=== PATIENT | male | born 1960 | race Caucasian/White ===

== ENCOUNTER 2017-10-26 19:10 | Inpatient (IN) | payer OTHER ==
[~2017-10-26] VITALS: Ht 175.3 cm; Wt 101.5 kg
[~2017-10-26 19:10] MED LIST: AMLO1CAP6 PO
[2017-10-26] MEDS ORDERED: MORPHINE SULFATE 4 MG/ML, 1ML IVPush PRN ×2 (20:00→22:00)
[2017-10-26] MEDS ORDERED: SODIUM CHLORIDE 0.9% 1,000ML IVBOLUS ONE (20:00)
[2017-10-26] MEDS ORDERED: ONDANSETRON ODT 4 MG PO ONE (20:00)
[2017-10-26] MEDS ORDERED: SODIUM CHLORIDE FLUSH 10ML SYR IVF ONE (20:00)
[2017-10-26] MEDS ORDERED: ONDANSETRON 2MG/ML, 2ML ONE (20:03)
[2017-10-26] MEDS ORDERED: MORPHINE SULFATE 4 MG/ML, 1ML ONE (20:04)
[2017-10-26 20:26] LABS: BASOPHILS # (AUTO) 0.02 x10^3/uL (0-0.1); BASOPHILS % (AUTO) 0 % (0-1); EOSINOPHILS # (AUTO) 0.03 x10^3/uL (0-0.4); EOSINOPHILS % (AUTO) 1 % (1-7); LYMPHOCYTES # (AUTO) 1.51 x10^3/uL (1-3.4); LYMPHOCYTES % (AUTO) 21 % (22-44); MD NO; MEAN CORPUSCULAR HEMOGLOBIN 31.9 pg (27.5-34.5); MEAN CORPUSCULAR HGB CONC 34.1 g/dL (33.2-36.2); MEAN CORPUSCULAR VOLUME 93.6 fL (81-97); MEAN PLATELET VOLUME 8.3 fL (7.4-10.4); MONOCYTES # (AUTO) 0.43 x10^3/uL (0.2-0.8); MONOCYTES % (AUTO) 6 % (2-9); NEUTROPHILS # (AUTO) 5.08 x10^3/uL (1.8-6.8); NEUTROPHILS % (AUTO) 72 % (42-75); PLATELET COUNT 196 x10^3/uL (130-400); RED BLOOD COUNT 5.76 x10^6/uL (4.38-5.82); RED CELL DISTRIBUTION WIDTH 15.3 % (9.4-14.8)
[2017-10-26 20:38] LABS: ALANINE AMINOTRANSFERASE 141 U/L (12-78); ALBUMIN 3.6 g/dL (3.4-5.0); ANION GAP 8 mmol/L (5-15); CHLORIDE 101 mmol/L (98-107); CREATININE 1.12 mg/dL (0.7-1.3)
[2017-10-26 20:40] LABS: ALKALINE PHOSPHATASE 92 U/L (45-117); BILIRUBIN,TOTAL 1.5 mg/dL (0.2-1.0); TOTAL PROTEIN 7.7 g/dL (6.4-8.2)
[2017-10-26] MEDS ORDERED: LORazepam 2 MG/ML, 1ML IVPush ONE (21:36)
[2017-10-26] MEDS ORDERED: NS + 20MEQ KCL 1,000 ML IV SCH (21:59)
[2017-10-26] MEDS ORDERED: ONDANSETRON 2MG/ML, 2ML IVPush ONE (22:00)
[2017-10-26] MEDS ORDERED: ENALAPRILAT 1.25 MG/ML, 2ML IVPush PRN (22:00)
[2017-10-26 22:41] VITALS: BP 162/101
[2017-10-26] MEDS ORDERED: NICOTINE GUM 2 MG BC PRN (23:30)
[2017-10-26 23:36] VITALS: BP 162/98
[2017-10-26] MEDS: KETOROLAC 30 MG/1 ML IVPush PRN (23:38)
[2017-10-26] MEDS: ENOXAPARIN 40 MG/0.4 ML SQ SCH (23:47)
[2017-10-26] MEDS ORDERED: LOSA100T6 PO (23:54)
[2017-10-26] MEDS ORDERED: OMEP20CA14 PO (23:54)
[2017-10-27 00:35] VITALS: BP 159/80
[2017-10-27] MEDS ORDERED: MORPHINE SULFATE 4 MG/ML, 1ML IVPush PRN (02:00)
[2017-10-27] MEDS: MORPHINE SULFATE 4 MG/ML, 1ML IVPush ONE ×2 (04:16→04:30)
[2017-10-27 05:21] LABS: ALANINE AMINOTRANSFERASE 139 U/L (12-78); ANION GAP 7 mmol/L (5-15); CALCIUM 7.7 mg/dL (8.5-10.1); CHLORIDE 105 mmol/L (98-107); CREATININE 0.99 mg/dL (0.7-1.3)
[2017-10-27 05:25] LABS: ALBUMIN 3.3 g/dL (3.4-5.0); ALKALINE PHOSPHATASE 87 U/L (45-117); BILIRUBIN,TOTAL 1.6 mg/dL (0.2-1.0); CHOL/HDL RATIO 4.1; CHOLESTEROL, TOTAL 95 mg/dL (140-239); HDL CHOL % 24 % (26-37); HDL CHOLESTEROL (DIRECT) 23 mg/dL (40-60); TOTAL PROTEIN 7.1 g/dL (6.4-8.2); TRIGLYCERIDES 547 mg/dL (50-200)
[2017-10-27] MEDS: KETOROLAC 30 MG/1 ML IVPush PRN ×4 (05:42→23:28)
[2017-10-27] MEDS: SODIUM CHLORIDE 0.9% 1,000 ML IV SCH ×3 (05:56→20:00)
[2017-10-27 07:40] VITALS: BP 155/88
[2017-10-27] MEDS: MORPHINE SULFATE 4 MG/ML, 1ML IVPush PRN ×4 (07:52→20:26)
[2017-10-27] MEDS: AMLODIPINE 5 MG TABLET PO SCH ×2 (09:00→20:31)
[2017-10-27] MEDS: BENAZEPRIL 20 MG TABLET PO SCH ×2 (09:00→20:31)
[2017-10-27] MEDS: ONDANSETRON 2MG/ML, 2ML IVPush PRN ×2 (11:34→17:29)
[2017-10-27] MEDS ORDERED: PROMETHAZINE 25 MG/ML, 1ML IM PRN (15:00)
[2017-10-27 15:07] VITALS: BP 147/102
[2017-10-27 20:28] VITALS: BP 164/94
[2017-10-27] MEDS ORDERED: MORPHINE SULFATE 4 MG/ML, 1ML IVPush ONE (22:00)
[2017-10-27 22:28] VITALS: BP 171/90
[2017-10-27 23:22] VITALS: BP 161/85
[2017-10-27] MEDS: ENOXAPARIN 40 MG/0.4 ML SQ SCH (23:28)
[2017-10-28 02:27] VITALS: BP 165/80
[2017-10-28] MEDS: SODIUM CHLORIDE 0.9% 1,000 ML IV SCH ×2 (02:31→08:53)
[2017-10-28] MEDS: MORPHINE SULFATE 4 MG/ML, 1ML IVPush PRN ×7 (02:53→22:40)
[2017-10-28] MEDS: ONDANSETRON 2MG/ML, 2ML IVPush PRN ×2 (02:58→09:36)
[2017-10-28] MEDS: KETOROLAC 30 MG/1 ML IVPush PRN ×4 (05:05→23:42)
[2017-10-28 05:17] LABS: CHLORIDE 101 mmol/L (98-107)
[2017-10-28 05:29] LABS: ALANINE AMINOTRANSFERASE 103 U/L (12-78); ALKALINE PHOSPHATASE 88 U/L (45-117); ANION GAP 6 mmol/L (5-15); BILIRUBIN,TOTAL 3.3 mg/dL (0.2-1.0); CALCIUM 7.7 mg/dL (8.5-10.1); CREATININE 0.75 mg/dL (0.7-1.3); TOTAL PROTEIN 6.6 g/dL (6.4-8.2)
[2017-10-28 07:23] VITALS: BP 142/82
[2017-10-28] MEDS: BENAZEPRIL 20 MG TABLET PO SCH (08:23)
[2017-10-28] MEDS: AMLODIPINE 5 MG TABLET PO SCH ×2 (08:23→21:00)
[2017-10-28] MEDS: POTASSIUM CHLORIDE 20 MEQ, MAGNESIUM SULFATE 1 GM, FOLIC ACID 1 MG, THIAMINE 200 MG, MV... IV SCH (12:26)
[2017-10-28 13:01] LABS: ALANINE AMINOTRANSFERASE 85 U/L (12-78); ALBUMIN 2.7 g/dL (3.4-5.0); ANION GAP 10 mmol/L (5-15); CALCIUM 7.7 mg/dL (8.5-10.1); CHLORIDE 102 mmol/L (98-107); CREATININE 0.79 mg/dL (0.7-1.3)
[2017-10-28 13:02] LABS: MD YES; MEAN CORPUSCULAR HEMOGLOBIN 32.4 pg (27.5-34.5); MEAN CORPUSCULAR HGB CONC 34.5 g/dL (33.2-36.2); MEAN CORPUSCULAR VOLUME 94.1 fL (81-97); MEAN PLATELET VOLUME 9.2 fL (7.4-10.4); PLATELET COUNT 119 x10^3/uL (130-400); RED BLOOD COUNT 4.75 x10^6/uL (4.38-5.82); RED CELL DISTRIBUTION WIDTH 14.9 % (9.4-14.8)
[2017-10-28 13:04] LABS: ALKALINE PHOSPHATASE 82 U/L (45-117); BAND#(MANUAL) 0.98 x10^3/uL; BANDS%(MANUAL) 6 % (0-7); LYMPH#(MANUAL) 0.49 x10^3/uL (1-3.4); LYMPHS% (MANUAL) 3 % (22-44); MONOS#(MANUAL) 1.15 x10^3/uL (0.3-2.7); MONOS% (MANUAL) 7 % (2-9); SEG#(MANUAL) 13.78 x10^3/uL (1.8-6.8); SEGS% (MANUAL) 84 % (42-75); TOTAL PROTEIN 6.3 g/dL (6.4-8.2)
[2017-10-28 13:05] LABS: <PLATELET ESTIMATE> DECREASED; <PLT MORPHOLOGY> NORMAL PLT MORPH; ANISOCYTOSIS 1+
[2017-10-28] MEDS: PANTOPRAZOLE 40 MG IV IVPush SCH (14:18)
[2017-10-28] MEDS ORDERED: SODIUM PHOSPHATE 4 MEQ/ML IV ONE (14:30)
[2017-10-28 14:54] VITALS: BP 156/104
[2017-10-28] MEDS ORDERED: SODIUM PHOSPHATE 30 MMOL in SODIUM CHLORIDE 0.9% 500 ML IV ONE (15:00)
[2017-10-28] MEDS ORDERED: MAGNESIUM SULFATE PMX 2GM/50ML 50 ML IV ONE (15:00)
[2017-10-28 16:25] LABS: MICROSCOPIC INDICATED
[2017-10-28 16:27] LABS: CULTURE INDICATED? NO
[2017-10-28 19:21] VITALS: BP 165/95
[2017-10-28] MEDS: ENOXAPARIN 40 MG/0.4 ML SQ SCH (23:43)
[2017-10-29 01:42] VITALS: BP 156/92
[2017-10-29] MEDS: MORPHINE SULFATE 4 MG/ML, 1ML IVPush PRN ×6 (01:48→23:46)
[2017-10-29] MEDS: PANTOPRAZOLE 40 MG IV IVPush SCH ×2 (02:11→14:41)
[2017-10-29 05:07] LABS: ALBUMIN 2.4 g/dL (3.4-5.0); ANION GAP 7 mmol/L (5-15); CALCIUM 7.9 mg/dL (8.5-10.1); CHLORIDE 100 mmol/L (98-107); MEAN CORPUSCULAR HEMOGLOBIN 32.9 pg (27.5-34.5); MEAN CORPUSCULAR HGB CONC 35.2 g/dL (33.2-36.2); MEAN CORPUSCULAR VOLUME 93.6 fL (81-97); RED CELL DISTRIBUTION WIDTH 15.4 % (9.4-14.8)
[2017-10-29 05:12] LABS: ALANINE AMINOTRANSFERASE 61 U/L (12-78); ALKALINE PHOSPHATASE 75 U/L (45-117); BILIRUBIN,TOTAL 2.6 mg/dL (0.2-1.0); CREATININE 0.78 mg/dL (0.7-1.3); TOTAL PROTEIN 6.2 g/dL (6.4-8.2)
[2017-10-29 05:48] LABS: MD YES; MEAN PLATELET VOLUME 9.6 fL (7.4-10.4); PLATELET COUNT 98 x10^3/uL (130-400)
[2017-10-29 05:50] LABS: BAND#(MANUAL) 1.98 x10^3/uL; BANDS%(MANUAL) 16 % (0-7); LYMPH#(MANUAL) 1.12 x10^3/uL (1-3.4); LYMPHS% (MANUAL) 9 % (22-44); METAMYELOCYTES# (MANUAL) 0.12 x10^3/uL (0-0); METAMYELOCYTES% (MANUAL) 1 % (0-1); MONOS#(MANUAL) 0.99 x10^3/uL (0.3-2.7); MONOS% (MANUAL) 8 % (2-9); SEG#(MANUAL) 8.18 x10^3/uL (1.8-6.8); SEGS% (MANUAL) 66 % (42-75)
[2017-10-29 05:51] LABS: <PLATELET ESTIMATE> DECREASED; ANISOCYTOSIS 1+; LARGE PLATELETS 1+
[2017-10-29 08:17] VITALS: BP 125/79
[2017-10-29] MEDS ORDERED: OMNIPAQUE 350 MG/ML, 100ML BOTTLE ONE (09:27)
[2017-10-29] MEDS: AMLODIPINE 5 MG TABLET PO SCH ×2 (09:29→20:26)
[2017-10-29] MEDS: FENOFIBRATE 145 MG TABLET PO SCH (09:29)
[2017-10-29] MEDS: LACTATED RINGERS 1,000 ML IV SCH ×2 (11:14→20:26)
[2017-10-29 12:48] VITALS: BP 123/78
[2017-10-29] MEDS: POTASSIUM CHLORIDE 20 MEQ, MAGNESIUM SULFATE 1 GM, FOLIC ACID 1 MG, THIAMINE 200 MG, MV... IV SCH (13:14)
[2017-10-29] MEDS ORDERED: MAGNESIUM SULFATE IN WATER 50 ML IV ONE (15:00)
[2017-10-29] MEDS: NEUTRA PHOS K 250 MG TABLET PO SCH ×2 (15:53→20:26)
[2017-10-29 19:43] VITALS: BP 133/81
[2017-10-29] MEDS: ONDANSETRON 2MG/ML, 2ML IVPush PRN (20:26)
[2017-10-29] MEDS: ENOXAPARIN 40 MG/0.4 ML SQ SCH (23:46)
[2017-10-30] MEDS: KETOROLAC 30 MG/1 ML IVPush PRN ×3 (02:39→23:18)
[2017-10-30 02:51] VITALS: BP 133/79
[2017-10-30] MEDS: LACTATED RINGERS 1,000 ML IV SCH ×3 (04:15→20:52)
[2017-10-30] MEDS: PANTOPRAZOLE 40 MG IV IVPush SCH ×2 (04:15→16:33)
[2017-10-30 05:02] LABS: BASOPHILS # (AUTO) 0.01 x10^3/uL (0-0.1); BASOPHILS % (AUTO) 0 % (0-1); EOSINOPHILS # (AUTO) 0.18 x10^3/uL (0-0.4); EOSINOPHILS % (AUTO) 2 % (1-7); LYMPHOCYTES # (AUTO) 1.25 x10^3/uL (1-3.4); LYMPHOCYTES % (AUTO) 12 % (22-44); MD NO; MEAN CORPUSCULAR HGB CONC 34.1 g/dL (33.2-36.2); MEAN CORPUSCULAR VOLUME 93.9 fL (81-97); MEAN PLATELET VOLUME 9.2 fL (7.4-10.4); MONOCYTES % (AUTO) 9 % (2-9); NEUTROPHILS % (AUTO) 77 % (42-75); PLATELET COUNT 108 x10^3/uL (130-400); RED BLOOD COUNT 4.05 x10^6/uL (4.38-5.82); RED CELL DISTRIBUTION WIDTH 15.4 % (9.4-14.8)
[2017-10-30 05:13] LABS: ALBUMIN 2.4 g/dL (3.4-5.0); ANION GAP 6 mmol/L (5-15); CALCIUM 7.8 mg/dL (8.5-10.1); CHLORIDE 100 mmol/L (98-107)
[2017-10-30 05:16] LABS: ALANINE AMINOTRANSFERASE 44 U/L (12-78); ALKALINE PHOSPHATASE 71 U/L (45-117); BILIRUBIN,TOTAL 2.5 mg/dL (0.2-1.0); CREATININE 0.82 mg/dL (0.7-1.3); TOTAL PROTEIN 6.3 g/dL (6.4-8.2)
[2017-10-30 07:00] VITALS: BP 131/79
[2017-10-30] MEDS: FENOFIBRATE 145 MG TABLET PO SCH (08:16)
[2017-10-30] MEDS: MORPHINE SULFATE 4 MG/ML, 1ML IVPush PRN ×3 (08:17→21:13)
[2017-10-30] MEDS: NEUTRA PHOS K 250 MG TABLET PO SCH ×3 (08:17→20:51)
[2017-10-30] MEDS: AMLODIPINE 5 MG TABLET PO SCH ×2 (08:17→20:51)
[2017-10-30] MEDS ORDERED: SODIUM PHOSPHATE 4 MEQ/ML IV SCH (11:30)
[2017-10-30] MEDS ORDERED: SODIUM PHOSPHATE 30 MMOL in SODIUM CHLORIDE 0.9% 500 ML IV ONE (11:30)
[2017-10-30 12:28] VITALS: BP 123/74
[2017-10-30] MEDS: POTASSIUM CHLORIDE 20 MEQ, MAGNESIUM SULFATE 1 GM, FOLIC ACID 1 MG, THIAMINE 200 MG, MV... IV SCH ×2 (18:06→21:13)
[2017-10-30] MEDS: PANTOPROZOLE 40MG TABLET PO SCH (18:07)
[2017-10-30 19:40] VITALS: BP 132/78
[2017-10-30] MEDS: TEMAZEPAM 15 MG CAPSULE PO PRN (23:18)
[2017-10-31] MEDS: ENOXAPARIN 40 MG/0.4 ML SQ SCH ×2 (00:44→23:47)
[2017-10-31 02:00] VITALS: BP 133/79
[2017-10-31] MEDS: MORPHINE SULFATE 4 MG/ML, 1ML IVPush PRN ×2 (04:31→07:45)
[2017-10-31 04:43] LABS: MEAN CORPUSCULAR HEMOGLOBIN 32.5 pg (27.5-34.5); MEAN CORPUSCULAR HGB CONC 34.1 g/dL (33.2-36.2); MEAN CORPUSCULAR VOLUME 95.3 fL (81-97); MEAN PLATELET VOLUME 9.3 fL (7.4-10.4); PLATELET COUNT 125 x10^3/uL (130-400); RED BLOOD COUNT 3.94 x10^6/uL (4.38-5.82); RED CELL DISTRIBUTION WIDTH 15.6 % (9.4-14.8)
[2017-10-31 04:50] LABS: CHLORIDE 101 mmol/L (98-107)
[2017-10-31 05:02] LABS: ALANINE AMINOTRANSFERASE 44 U/L (12-78); ALBUMIN 2.1 g/dL (3.4-5.0); ALKALINE PHOSPHATASE 90 U/L (45-117); ANION GAP 6 mmol/L (5-15); BILIRUBIN,TOTAL 1.8 mg/dL (0.2-1.0); CALCIUM 8.1 mg/dL (8.5-10.1); CREATININE 0.66 mg/dL (0.7-1.3); TOTAL PROTEIN 6.5 g/dL (6.4-8.2)
[2017-10-31 05:42] LABS: BASOPHILS # (AUTO) 0.01 x10^3/uL (0-0.1); BASOPHILS % (AUTO) 0 % (0-1); EOSINOPHILS # (AUTO) 0.23 x10^3/uL (0-0.4); EOSINOPHILS % (AUTO) 2 % (1-7); LYMPHOCYTES # (AUTO) 1.51 x10^3/uL (1-3.4); LYMPHOCYTES % (AUTO) 16 % (22-44); MD SCAN; MONOCYTES # (AUTO) 0.75 x10^3/uL (0.2-0.8); MONOCYTES % (AUTO) 8 % (2-9); NEUTROPHILS # (AUTO) 7.24 x10^3/uL (1.8-6.8); NEUTROPHILS % (AUTO) 74 % (42-75)
[2017-10-31 07:16] VITALS: BP 135/79
[2017-10-31] MEDS: PANTOPROZOLE 40MG TABLET PO SCH ×2 (07:44→17:33)
[2017-10-31] MEDS: AMLODIPINE 5 MG TABLET PO SCH ×2 (07:44→21:10)
[2017-10-31] MEDS: NEUTRA PHOS K 250 MG TABLET PO SCH (07:44)
[2017-10-31] MEDS: FENOFIBRATE 145 MG TABLET PO SCH (07:45)
[2017-10-31] MEDS: KETOROLAC 30 MG/1 ML IVPush PRN ×2 (10:40→18:36)
[2017-10-31 12:13] VITALS: BP 148/82
[2017-10-31] MEDS ORDERED: LORazepam INTENSOL 2 MG/ML PO PRN (12:30)
[2017-10-31] MEDS: LACTATED RINGERS 1,000 ML IV SCH ×2 (12:35→21:12)
[2017-10-31] MEDS: THIAMINE 100MG TABLET PO SCH (12:38)
[2017-10-31] MEDS: FOLIC ACID 1 MG TABLET PO SCH (12:38)
[2017-10-31] MEDS: HYDROcodone/APAP 5/325 TABLET PO PRN ×2 (15:37→22:11)
[2017-10-31 19:45] VITALS: BP 145/81
[2017-10-31] MEDS: TEMAZEPAM 15 MG CAPSULE PO PRN (23:50)
[2017-11-01 02:00] VITALS: BP 132/78
[2017-11-01] MEDS: MORPHINE SULFATE 4 MG/ML, 1ML IVPush PRN ×6 (02:24→23:40)
[2017-11-01] MEDS: HYDROcodone/APAP 5/325 TABLET PO PRN ×3 (05:11→21:10)
[2017-11-01] MEDS: LACTATED RINGERS 1,000 ML IV SCH ×3 (05:12→21:11)
[2017-11-01 05:14] LABS: ALANINE AMINOTRANSFERASE 49 U/L (12-78); ALBUMIN 2.2 g/dL (3.4-5.0); ANION GAP 5 mmol/L (5-15); CALCIUM 7.8 mg/dL (8.5-10.1); CHLORIDE 101 mmol/L (98-107); CREATININE 0.68 mg/dL (0.7-1.3)
[2017-11-01 05:15] LABS: ALKALINE PHOSPHATASE 85 U/L (45-117); BILIRUBIN,TOTAL 0.9 mg/dL (0.2-1.0); TOTAL PROTEIN 6.5 g/dL (6.4-8.2)
[2017-11-01 05:18] LABS: BASOPHILS # (AUTO) 0.03 x10^3/uL (0-0.1); BASOPHILS % (AUTO) 0 % (0-1); EOSINOPHILS # (AUTO) 0.26 x10^3/uL (0-0.4); EOSINOPHILS % (AUTO) 3 % (1-7); LYMPHOCYTES # (AUTO) 1.31 x10^3/uL (1-3.4); LYMPHOCYTES % (AUTO) 16 % (22-44); MD NO; MEAN CORPUSCULAR HEMOGLOBIN 32.6 pg (27.5-34.5); MEAN CORPUSCULAR HGB CONC 34.3 g/dL (33.2-36.2); MEAN CORPUSCULAR VOLUME 95.1 fL (81-97); MEAN PLATELET VOLUME 9.3 fL (7.4-10.4); MONOCYTES # (AUTO) 1.01 x10^3/uL (0.2-0.8); MONOCYTES % (AUTO) 12 % (2-9); NEUTROPHILS # (AUTO) 5.69 x10^3/uL (1.8-6.8); NEUTROPHILS % (AUTO) 69 % (42-75); PLATELET COUNT 143 x10^3/uL (130-400); RED BLOOD COUNT 3.86 x10^6/uL (4.38-5.82); RED CELL DISTRIBUTION WIDTH 15.8 % (9.4-14.8)
[2017-11-01] MEDS ORDERED: POTASSIUM CHLORIDE 20 MEQ TAB.ER.PRT PO ONE ×2 (06:30→11:30)
[2017-11-01 07:01] VITALS: BP 143/80
[2017-11-01] MEDS: AMLODIPINE 5 MG TABLET PO SCH ×2 (07:54→19:59)
[2017-11-01] MEDS: THIAMINE 100MG TABLET PO SCH (07:54)
[2017-11-01] MEDS: PANTOPROZOLE 40MG TABLET PO SCH ×2 (07:54→16:54)
[2017-11-01] MEDS: FOLIC ACID 1 MG TABLET PO SCH (07:54)
[2017-11-01] MEDS: FENOFIBRATE 145 MG TABLET PO SCH (07:55)
[2017-11-01 12:21] VITALS: BP 144/80
[2017-11-01 20:00] VITALS: BP 142/85
[2017-11-01] MEDS: ENOXAPARIN 40 MG/0.4 ML SQ SCH (23:38)
[2017-11-02] MEDS: TEMAZEPAM 15 MG CAPSULE PO PRN (01:06)
[2017-11-02 02:00] VITALS: BP 164/89
[2017-11-02] MEDS: MORPHINE SULFATE 4 MG/ML, 1ML IVPush PRN ×2 (04:32→07:53)
[2017-11-02] MEDS: HYDROcodone/APAP 5/325 TABLET PO PRN ×2 (05:15→13:13)
[2017-11-02] MEDS: LACTATED RINGERS 1,000 ML IV SCH (05:16)
[2017-11-02 05:19] LABS: MEAN CORPUSCULAR HEMOGLOBIN 32.4 pg (27.5-34.5); MEAN CORPUSCULAR HGB CONC 33.9 g/dL (33.2-36.2); MEAN CORPUSCULAR VOLUME 95.7 fL (81-97); MEAN PLATELET VOLUME 9.6 fL (7.4-10.4); PLATELET COUNT 165 x10^3/uL (130-400); RED BLOOD COUNT 3.89 x10^6/uL (4.38-5.82); RED CELL DISTRIBUTION WIDTH 16.5 % (9.4-14.8)
[2017-11-02 05:25] LABS: ALBUMIN 2.1 g/dL (3.4-5.0); ANION GAP 8 mmol/L (5-15); CALCIUM 8.4 mg/dL (8.5-10.1); CHLORIDE 100 mmol/L (98-107)
[2017-11-02 05:29] LABS: ALANINE AMINOTRANSFERASE 41 U/L (12-78); ALKALINE PHOSPHATASE 73 U/L (45-117); CREATININE 0.58 mg/dL (0.7-1.3); TOTAL PROTEIN 6.5 g/dL (6.4-8.2)
[2017-11-02 05:57] LABS: MD YES
[2017-11-02 05:59] LABS: BAND#(MANUAL) 0.41 x10^3/uL; BANDS%(MANUAL) 5 % (0-7); EOS#(MANUAL) 0.16 x10^3/uL (0.0-0.4); EOS% (MANUAL) 2 % (1-7); LYMPH#(MANUAL) 1.13 x10^3/uL (1-3.4); LYMPHS% (MANUAL) 14 % (22-44); METAMYELOCYTES# (MANUAL) 0.08 x10^3/uL (0-0); METAMYELOCYTES% (MANUAL) 1 % (0-1); MONOS#(MANUAL) 1.22 x10^3/uL (0.3-2.7); MONOS% (MANUAL) 15 % (2-9); NRBC % (MANUAL) 1 % (0-1); SEGS% (MANUAL) 63 % (42-75)
[2017-11-02 06:00] LABS: TOXIC GRAN 1+
[2017-11-02 06:01] LABS: ANISOCYTOSIS 1+; POLYCHROMASIA 1+
[2017-11-02 06:02] LABS: <PLATELET ESTIMATE> ADEQUATE; LARGE PLATELETS 1+
[2017-11-02 06:51] VITALS: BP 153/92
[2017-11-02] MEDS: FENOFIBRATE 145 MG TABLET PO SCH (07:39)
[2017-11-02] MEDS: PANTOPROZOLE 40MG TABLET PO SCH (07:53)
[2017-11-02] MEDS: AMLODIPINE 5 MG TABLET PO SCH (07:53)
[2017-11-02] MEDS: THIAMINE 100MG TABLET PO SCH (07:53)
[2017-11-02] MEDS: FOLIC ACID 1 MG TABLET PO SCH (07:53)
[2017-11-02] MEDS ORDERED: FOLI-17 PO (12:58)
[2017-11-02] MEDS ORDERED: PANT40TA5 PO (12:58)
[2017-11-02] MEDS ORDERED: THIA100T6 PO (12:58)
== END 2017-11-02 14:49 | disposition home or self-care (01) | DRG 438 ==
LOC: ED 21:40 → EDIP 21:45 → 3NW 22:24 → DCLOUNGE 11-02 14:37
PROVIDERS: ADMIT Internal Medicine; ATTEND Internal Medicine
DX: K85.20 Alcohol induced acute pancreatitis without necrosis or infection (principal); R65.11 Systemic inflammatory response syndrome (SIRS) of non-infectious origin with acute organ dysfunction; E87.1 Hypo-osmolality and hyponatremia; E44.0 Moderate protein-calorie malnutrition; F10.229 Alcohol dependence with intoxication, unspecified; K70.9 Alcoholic liver disease, unspecified; D64.9 Anemia, unspecified; E83.39 Other disorders of phosphorus metabolism; E83.42 Hypomagnesemia; I10 Essential (primary) hypertension; K70.10 Alcoholic hepatitis without ascites; K76.0 Fatty (change of) liver, not elsewhere classified; Z72.0 Tobacco use
CPT/HCPCS: 36415; 71045; 74177; 74181; 76700; 80053; 80061; 80307; 81001; 83690; 83735; 84100; 85025; 87040; 93005; 96374; J1650; J1885; J2405; J2550; J3411; J3475; J3480; Q0162; Q9967; C9113; J7030; J7040; J7120; J7121